=== PATIENT | female | born 1965 | race African-American/Black ===

== ENCOUNTER 2021-01-01 20:10 | Emergency (ER) | payer OTHER ==
[2021-01-01 20:19] VITALS: BP 120/83; PULSE 90; TEMP 98.3; BMI 37.8
[2021-01-01] MEDS ORDERED: SODIUM CHLORIDE 1,000 ML IV STA (20:58)
[2021-01-01] MEDS ORDERED: ONDANSETRON 4 MG/2 ML VIAL IVPUSH ONE (20:58)
[2021-01-01] MEDS ORDERED: ONDANSETRON 4 MG/2 ML VIAL ONE (21:27)
[2021-01-01 22:41] LABS: BASO % 0.4 % (0-2.0); EOS % 0.4 % (0-4.5); HEMATOCRIT 38.7 % (32.4-45.2); HEMOGLOBIN 12.8 GM/dL (10.7-15.3); LYMPH % 6.7 % (8-40); MCH 26.7 pg (25.7-33.7); MCHC 33.2 g/dl (32.0-36.0); MEAN CELL VOLUME 80.3 fl (80-96); MEAN PLT VOLUME 8.9 fl (7.5-11.1); MONO % 4.2 % (3.8-10.2); NEUT % 88.3 % (42.8-82.8); PLATELET COUNT 268 10^3/uL (134-434); RBC 4.82 M/mm3 (3.60-5.2); RDW 14.6 % (11.6-15.6); URINE APPEARANCE CLEAR; URINE BILIRUBIN NEGATIVE (NEGATIVE); URINE COLOR YELLOW; URINE GLUCOSE (UA) NEGATIVE (NEGATIVE); URINE KETONE NEGATIVE (NEGATIVE); URINE LEUK ESTERASE NEGATIVE (NEGATIVE); URINE NITRITE NEGATIVE (NEGATIVE); URINE PROTEIN NEGATIVE (NEGATIVE); URINE UROBILINOGEN 0.2 mg/dL (0.2-1.0); WHITE BLOOD COUNT 7.5 K/mm3 (4.0-10.0)
[2021-01-01 23:05] LABS: ALBUMIN 4.1 g/dl (3.4-5.0); CALCIUM 9.1 mg/dL (8.5-10.1)
[2021-01-01 23:06] LABS: BLOOD UREA NITROGEN 10.4 mg/dL (7-18)
[2021-01-01 23:08] LABS: CREATININE 0.8 mg/dL (0.55-1.3)
[2021-01-01 23:10] LABS: BILIRUBIN,TOTAL 1.1 mg/dL (0.2-1)
== END 2021-01-02 00:04 | disposition home or self-care (01) ==
LOC: JERFT 20:10 → JER 20:10
PROC: 3E033GC Introduction of Other Therapeutic Substance into Peripheral Vein, Percutaneous Approach (ICD-10-PCS; principal; 2021-01-01)
PROC: 3E0337Z Introduction of Electrolytic and Water Balance Substance into Peripheral Vein, Percutaneous Approach (ICD-10-PCS; 2021-01-01)
DX: K52.9 Noninfective gastroenteritis and colitis, unspecified (principal)
CPT/HCPCS: 36415; 80053; 81003; 83690; 85025; 87086; 99284-25; C9803; U0003; U0005

== ENCOUNTER 2021-07-29 17:13 | Emergency (ER) | payer OTHER ==
[2021-07-29 17:28] VITALS: BP 141/84; PULSE 76; TEMP 98; BMI 38.6
[2021-07-29] MEDS ORDERED: KETOROLAC TROMETHAMINE 30 MG/1 ML VIAL IM ONE (17:57)
[2021-07-29] MEDS ORDERED: valACYclovir HCL 1000 MG TABLET PO ONE (17:57)
[2021-07-29] MEDS ORDERED: KETOROLAC TROMETHAMINE 30 MG/1 ML VIAL ONE (18:00)
[2021-07-29] MEDS ORDERED: valACYclovir HCL 500 MG TABLET (FP) ONE (18:01)
== END 2021-07-29 19:39 | disposition home or self-care (01) ==
LOC: JERFT 17:13 → JER 17:13 → JERFT 19:39
PROC: 3E023GC Introduction of Other Therapeutic Substance into Muscle, Percutaneous Approach (ICD-10-PCS; principal; 2021-07-29)
DX: G51.1 Geniculate ganglionitis (principal)
CPT/HCPCS: 96372; 99284-25

== ENCOUNTER 2023-07-23 15:39 | Emergency (ER) | payer OTHER ==
[2023-07-23 15:55] VITALS: BP 147/72; PULSE 83; RESP 17; TEMP 98.4; BMI 36.0
[2023-07-23] MEDS ORDERED: KETOROLAC TROMETHAMINE 30 MG/1 ML VIAL IM ONE (17:48)
[2023-07-23] MEDS ORDERED: KETOROLAC TROMETHAMINE 30 MG/1 ML VIAL ONE (17:55)
== END 2023-07-23 18:43 | disposition home or self-care (01) ==
LOC: JERFT 15:39
PROC: 3E0233Z Introduction of Anti-inflammatory into Muscle, Percutaneous Approach (ICD-10-PCS; principal; 2023-07-23)
DX: R05.9 Cough, unspecified (principal); R50.9 Fever, unspecified; M79.10 Myalgia, unspecified site; B34.9 Viral infection, unspecified; U07.1 COVID-19
CPT/HCPCS: 0241U-QW; 99284-25

== ENCOUNTER 2023-12-19 20:36 | Emergency (ER) | payer OTHER ==
[2023-12-19 20:42] VITALS: PULSE 58; RESP 18; TEMP 98.3; BMI 41.1
[2023-12-19] MEDS ORDERED: ACETAMINOPHEN 325 MG TABLET (FP) ONE (21:55)
[2023-12-19] MEDS: ACETAMINOPHEN 325 MG TABLET (FP) PO ONE (22:12)
[2023-12-19 22:16] LABS: BASO % 0.5 % (0-2.0); EOS % 1.3 % (0-4.5); HEMATOCRIT 37.4 % (32.4-45.2); HEMOGLOBIN 12.2 GM/dL (10.7-15.3); MCHC 32.5 g/dl (32.0-36.0); MEAN PLT VOLUME 8.5 fl (7.5-11.1); MONO % 8.3 % (3.8-10.2); NEUT % 54.9 % (42.8-82.8); PLATELET COUNT 316 10^3/uL (134-434); RBC 4.67 M/mm3 (3.60-5.2); RDW 15.5 % (11.6-15.6); WHITE BLOOD COUNT 6.4 K/mm3 (4.0-10.0)
[2023-12-19 22:34] LABS: POTASSIUM 5.7 mmol/L (3.5-5.1)
[2023-12-19 22:36] LABS: CALCIUM 8.8 mg/dL (8.5-10.1)
[2023-12-19 22:37] LABS: ALBUMIN 3.5 g/dl (3.4-5.0)
[2023-12-19 22:40] LABS: CREATININE 0.8 mg/dL (0.55-1.3)
[2023-12-19 22:41] LABS: TOT PROT 7.4 g/dl (6.4-8.2)
[2023-12-19 22:45] LABS: BILIRUBIN,TOTAL 0.5 mg/dL (0.2-1)
[2023-12-20 00:09] LABS: POTASSIUM 4.5 mmol/L (3.5-5.1)
[2023-12-20 00:11] LABS: BLOOD UREA NITROGEN 8.6 mg/dL (7-18); CALCIUM 8.8 mg/dL (8.5-10.1)
[2023-12-20 00:15] LABS: CREATININE 0.7 mg/dL (0.55-1.3)
[2023-12-20 00:51] VITALS: BP 117/54
== END 2023-12-20 00:55 | disposition home or self-care (01) ==
LOC: JER 20:36
DX: R51.9 Headache, unspecified (principal); G89.29 Other chronic pain; I10 Essential (primary) hypertension; H53.8 Other visual disturbances
CPT/HCPCS: 36415; 70450-TC; 71046-TC-FY; 80048; 80053; 84484; 85025; 93005; 93010; 99285-25

== ENCOUNTER 2024-03-09 10:54 | Observation (INO) | payer OTHER ==
[2024-03-09 12:25] LABS: BASO % 0.7 % (0-2.0); EOS % 1.3 % (0-4.5); HEMATOCRIT 34.5 % (32.4-45.2); HEMOGLOBIN 11.4 GM/dL (10.7-15.3); LYMPH % 30.5 % (8-40); MCH 26.9 pg (25.7-33.7); MEAN CELL VOLUME 81.5 fl (80-96); MEAN PLT VOLUME 8.9 fl (7.5-11.1); MONO % 10.9 % (3.8-10.2); NEUT % 56.6 % (42.8-82.8); PLATELET COUNT 234 10^3/uL (134-434); RBC 4.23 M/mm3 (3.60-5.2); RDW 14.7 % (11.6-15.6); WHITE BLOOD COUNT 5.2 K/mm3 (4.0-10.0)
[2024-03-09 12:40] LABS: INR 1.14 (0.83-1.09); PROTHROMBIN TIME (PATIENT) 12.8 SEC (9.7-13.0)
[2024-03-09 12:46] LABS: POTASSIUM 4.4 mmol/L (3.5-5.1)
[2024-03-09 12:48] LABS: ALBUMIN 3.4 g/dl (3.4-5.0); BLOOD UREA NITROGEN 9.7 mg/dL (7-18); CALCIUM 9.1 mg/dL (8.5-10.1)
[2024-03-09 12:51] LABS: CREATININE 0.9 mg/dL (0.55-1.3)
[2024-03-09 12:53] LABS: BILIRUBIN,TOTAL 0.6 mg/dL (0.2-1); TOT PROT 6.6 g/dl (6.4-8.2)
[2024-03-09 13:51] LABS: EPI CELLS 9 /uL (0-25.1); HYALINE CASTS 1 /uL (0-3.1); URINE APPEARANCE CLEAR; URINE BACTERIA 6043 /uL (0-1359); URINE BILIRUBIN NEGATIVE (NEGATIVE); URINE COLOR YELLOW; URINE GLUCOSE (UA) NEGATIVE (NEGATIVE); URINE KETONE NEGATIVE (NEGATIVE); URINE LEUK ESTERASE 2+ (NEGATIVE); URINE NITRITE NEGATIVE (NEGATIVE); URINE PROTEIN NEGATIVE (NEGATIVE); URINE RBC 15 /uL (0-23.9); URINE WBC 369 /uL (0-25.8)
[2024-03-09 14:16] LABS: HIV INTERPRETATION NEGATIVE (NEGATIVE)
[2024-03-09] MEDS: SODIUM CHLORIDE 0.9% 500 ML INFUS.BAG IV ONE (14:28)
[2024-03-09] MEDS ORDERED: CEFTRIAXONE 1 GM/50 ML BAG ONE (15:51)
[2024-03-09] MEDS: CEFTRIAXONE 1,000 MG in DEXTROSE 5%-WATER - 50 ML IVPB ONE (15:57)
[2024-03-09 17:27] LABS: ARTERIAL BLD GAS O2 SATURATION 97.4 % (95-98); ARTERIAL BLOOD GAS BASE EXCESS 3.5 mmol/L (-2-2); ARTERIAL BLOOD GAS PO2 89.2 mmHg (80-100); ARTERIAL BLOOD GAS pH 7.493 (7.350-7.450)
[2024-03-09 17:28] LABS: ALLENS TEST POSITIVE
[2024-03-09] MEDS ORDERED: ATORVASTATIN CA 20 MG TABLET (FP) ONE (21:44)
[2024-03-09] MEDS ORDERED: GABAPENTIN 300 MG CAPSULE ONE (21:44)
[2024-03-09] MEDS: ATORVASTATIN CA 20 MG TABLET (FP) PO SCH (21:48)
[2024-03-09] MEDS: GABAPENTIN 300 MG CAPSULE PO SCH (21:48)
[2024-03-09] MEDS ORDERED: PATIENT'S OWN MEDICATION (NON-FORMULARY) (Cariprazine Hcl [Vraylar] 1.5 MG Capsule) PO SCH (22:00)
[2024-03-10 05:28] VITALS: BMI 40.6
[2024-03-10 09:57] LABS: BASO % 0.7 % (0-2.0); EOS % 1.5 % (0-4.5); HEMATOCRIT 36.3 % (32.4-45.2); HEMOGLOBIN 11.8 GM/dL (10.7-15.3); LYMPH % 29.3 % (8-40); MCH 26.7 pg (25.7-33.7); MCHC 32.5 g/dl (32.0-36.0); MEAN PLT VOLUME 8.4 fl (7.5-11.1); MONO % 8.1 % (3.8-10.2); NEUT % 60.4 % (42.8-82.8); PLATELET COUNT 246 10^3/uL (134-434); RBC 4.43 M/mm3 (3.60-5.2); RDW 14.5 % (11.6-15.6); WHITE BLOOD COUNT 4.5 K/mm3 (4.0-10.0)
[2024-03-10] MEDS ORDERED: amLODIPine BESYLATE 5 MG TABLET (FP) PO SCH (10:00)
[2024-03-10] MEDS ORDERED: PATIENT'S OWN MEDICATION (NON-FORMULARY) (Losartan Potassium [Cozaar] 100 MG Tablet) PO SCH (10:00)
[2024-03-10] MEDS ORDERED: LOSARTAN POTASSIUM 50 MG TABLET PO SCH (10:00)
[2024-03-10] MEDS: PARoxetine HCL 10 MG TABLET PO SCH (10:18)
[2024-03-10] MEDS: LOSARTAN POTASSIUM 50 MG TABLET PO SCH (10:18)
[2024-03-10] MEDS: CEFTRIAXONE 1 GM in DEXTROSE 5%-WATER - 50 ML IVPB ONE (10:19)
[2024-03-10] MEDS: PANTOPRAZOLE 40 MG TABLET PO SCH (10:19)
[2024-03-10] MEDS: FLUTICASONE/UMECLIDIN/VILANTER(200-62.5-25 TRELEGY ELLIPTA) INAHLER IH SCH (10:20)
[2024-03-10 11:00] LABS: POTASSIUM 3.5 mmol/L (3.5-5.1)
[2024-03-10 11:13] LABS: BLOOD UREA NITROGEN 8.4 mg/dL (7-18); CALCIUM 9.1 mg/dL (8.5-10.1); MAGNESIUM 2.2 mg/dL (1.8-2.4)
[2024-03-10 11:17] LABS: CREATININE 0.8 mg/dL (0.55-1.3); PHOSPHOROUS 2.8 mg/dL (2.5-4.9)
[2024-03-10] MEDS: TOPIRAMATE 25 MG TABLET PO SCH (22:57)
[2024-03-11] MEDS: CEFTRIAXONE 1 GM in DEXTROSE 5%-WATER - 50 ML IVPB SCH (10:33)
[2024-03-11] MEDS: LOSARTAN POTASSIUM 50 MG TABLET PO SCH (10:34)
[2024-03-11 16:43] LABS: BASO % 0.7 % (0-2.0); EOS % 1.3 % (0-4.5); HEMOGLOBIN 12.6 GM/dL (10.7-15.3); LYMPH % 23.8 % (8-40); MCH 26.7 pg (25.7-33.7); MCHC 32.3 g/dl (32.0-36.0); MEAN CELL VOLUME 82.6 fl (80-96); MEAN PLT VOLUME 9.1 fl (7.5-11.1); MONO % 7.3 % (3.8-10.2); NEUT % 66.9 % (42.8-82.8); PLATELET COUNT 250 10^3/uL (134-434); RBC 4.73 M/mm3 (3.60-5.2); RDW 14.9 % (11.6-15.6); WHITE BLOOD COUNT 6.2 K/mm3 (4.0-10.0)
[2024-03-11 17:14] LABS: ALBUMIN 3.5 g/dl (3.4-5.0); CALCIUM 8.7 mg/dL (8.5-10.1)
[2024-03-11 17:15] LABS: BLOOD UREA NITROGEN 10.2 mg/dL (7-18)
[2024-03-11 17:17] LABS: CREATININE 1.1 mg/dL (0.55-1.3)
[2024-03-11 17:19] LABS: BILIRUBIN,TOTAL 0.4 mg/dL (0.2-1)
[2024-03-12 08:46] VITALS: BP 133/78; PULSE 60; RESP 18; TEMP 98
[2024-03-12] MEDS: ALBUTEROL SO4 HFA INHALER IH PRN (09:57)
== END 2024-03-12 11:29 | disposition home or self-care (01) ==
LOC: JER 10:54 → JERBED 15:58 → J4S 03-10 04:55
PROVIDERS: ADMIT Internal Medicine; ATTEND Internal Medicine
PROC: 3E03329 Introduction of Other Anti-infective into Peripheral Vein, Percutaneous Approach (ICD-10-PCS; principal; 2024-03-09)
PROC: 3E0337Z Introduction of Electrolytic and Water Balance Substance into Peripheral Vein, Percutaneous Approach (ICD-10-PCS; 2024-03-09)
DX: N39.0 Urinary tract infection, site not specified (principal); R13.10 Dysphagia, unspecified; I10 Essential (primary) hypertension; R55 Syncope and collapse; J45.909 Unspecified asthma, uncomplicated; E66.9 Obesity, unspecified; R00.1 Bradycardia, unspecified; G43.909 Migraine, unspecified, not intractable, without status migrainosus; X58.XXXA Exposure to other specified factors, initial encounter; Y93.89 Activity, other specified; Y92.89 Other specified places as the place of occurrence of the external cause
CPT/HCPCS: 0241U-QW; 36415; 36600; 70450-TC; 71046-TC-FY; 74177-TC; 74220-TC-FY; 80048; 80053; 81003; 82150; 82607; 82803; 82962; 83036; 83690; 83735; 83880; 84100; 84443; 84484; 85025; 85610; 86780; 86803; 87081; 87086; 87186; 87389; 93005; 93010; 93306-TC; 96365; 96366; 99285-25; G0378; Q9967

== ENCOUNTER 2024-04-21 16:25 | Emergency (ER) | payer OTHER ==
[2024-04-21 16:51] VITALS: BP 135/85; PULSE 72; RESP 16; TEMP 97.5; BMI 36.8
[2024-04-21 18:52] LABS: BASO % 0.8 % (0-2.0); EOS % 1.3 % (0-4.5); HEMATOCRIT 39.9 % (32.4-45.2); HEMOGLOBIN 13.2 GM/dL (10.7-15.3); LYMPH % 36.3 % (8-40); MCH 26.6 pg (25.7-33.7); MEAN CELL VOLUME 80.6 fl (80-96); MONO % 7.1 % (3.8-10.2); NEUT % 54.5 % (42.8-82.8); PLATELET COUNT 283 10^3/uL (134-434); RBC 4.95 M/mm3 (3.60-5.2); RDW 15.1 % (11.6-15.6); WHITE BLOOD COUNT 5.7 K/mm3 (4.0-10.0)
[2024-04-21 18:56] LABS: EPI CELLS 27 /uL (0-25.1); HYALINE CASTS 0 /uL (0-3.1); URINE APPEARANCE CLEAR; URINE BACTERIA 436 /uL (0-1359); URINE BILIRUBIN NEGATIVE (NEGATIVE); URINE COLOR YELLOW; URINE GLUCOSE (UA) NEGATIVE (NEGATIVE); URINE KETONE NEGATIVE (NEGATIVE); URINE LEUK ESTERASE TRACE (NEGATIVE); URINE NITRITE NEGATIVE (NEGATIVE); URINE PROTEIN NEGATIVE (NEGATIVE); URINE RBC 6 /uL (0-23.9); URINE UROBILINOGEN 0.2 mg/dL (0.2-1.0); URINE WBC 33 /uL (0-25.8)
[2024-04-21 19:25] LABS: POTASSIUM 3.7 mmol/L (3.5-5.1)
[2024-04-21 19:27] LABS: ALBUMIN 4.4 g/dl (3.4-5.0); CALCIUM 8.4 mg/dL (8.5-10.1)
[2024-04-21 19:28] LABS: BLOOD UREA NITROGEN 9.4 mg/dL (7-18)
[2024-04-21 19:32] LABS: BILIRUBIN,TOTAL 0.9 mg/dL (0.2-1); TOT PROT 8.1 g/dl (6.4-8.2)
[2024-04-21] MEDS ORDERED: KETOROLAC TROMETHAMINE 15 MG/ML VIAL IVPUSH ONE (19:41)
[2024-04-21 20:07] LABS: HIV INTERPRETATION NEGATIVE (NEGATIVE)
[2024-04-21] MEDS ORDERED: ACETAMINOPHEN 325 MG TABLET (FP) ONE (21:37)
[2024-04-21] MEDS ORDERED: LIDOCAINE 5% TOPICAL PATCH ONE (21:37)
[2024-04-21] MEDS ORDERED: KETOROLAC TROMETHAMINE 30 MG/1 ML VIAL ONE (21:38)
[2024-04-21] MEDS: ACETAMINOPHEN 325 MG TABLET (FP) PO ONE (21:54)
[2024-04-21] MEDS: LIDOCAINE 5% TOPICAL PATCH TP ONE (21:56)
[2024-04-21] MEDS: KETOROLAC TROMETHAMINE 30 MG/1 ML VIAL IM ONE (21:57)
[2024-04-21] MEDS ORDERED: LIDOCAINE PATCH REMOVAL MC SCH (22:00)
== END 2024-04-21 22:08 | disposition home or self-care (01) ==
LOC: JER 16:25
PROC: 3E0233Z Introduction of Anti-inflammatory into Muscle, Percutaneous Approach (ICD-10-PCS; principal; 2024-04-21)
DX: M54.9 Dorsalgia, unspecified (principal); R10.9 Unspecified abdominal pain
CPT/HCPCS: 36415; 74176-TC; 80053; 81003; 85025; 86803; 87389; 99284-25